=== PATIENT | male | born 1950 | race Caucasian/White ===

== ENCOUNTER 2018-06-06 03:38 | Emergency (ER) | payer BC, SELFPAY ==
[2018-06-06] VITALS (58 sets, daily range): BP systolic 87–120; BP diastolic 59–71; PULSE 63–87; RESP 8–23; TEMP 36.5; O2SAT 93–99
--- NOTE | 2018-06-06 03:45 | W.ED.GENAD ---
Discharge Plan Disposition Patient Disposition: HOME Condition: Good Discharge Details Chief Complaint: Chest Pain Clinical Impression: Chest pain Primary Care Provider: [facility] Provider: Fabian Madrigal Home Meds and New Rx's Prescriptions: No Action valacyclovir 500 mg Tablet 500 mg PO PRN PRNRF: 0 Discharge Instructions Instructions: Chest Pain (ED) Additional Instructions: Please follow-up immediately with your pre press manager at [place] for your stress test and further reevaluation. If you would like additional cardiology referral here, please contact us immediately upon her return we will set this up. If you notice any worsening of your symptoms, or any new symptoms such as vomiting, diarrhea, fever, chills, shortness of breath, chest pain, numbness, weakness, or fainting , please return immediately to the emergency department for reevaluation. Please follow up with your primary care provider as soon as possible for reassessment and reevaluation. As always, it was a pleasure participating in your medical care today. Medical Decision Making <Serg Brand MD - Last Filed: 06/06/18 07:43> 68-year-old healthy male awakened by substernal chest discomfort at approximately 3:30 AM. It abated on route. He was given aspirin by EMS. Vital signs are unremarkable, exam is reassuring. He does demonstrate very discrete tenderness in the epigastric region. Differential diagnosis includes gastritis, esophageal spasm, must exclude underlying ACS. Patient placed on a clinical research monitor, laboratories obtained patient referred for EKG and chest x-ray. Given GI cocktail. Initial laboratories unremarkable. Patient observed on clinical research monitor and repeat troponin will be obtained at [address] Please see Dr. Madrigal's note regarding final impression Lab Data Lab results reviewed: Yes I reviewed the patient's lab results. Laboratory Results - last 24 hr 06/06/18 06/06/18 03:57 03:57 WBC 7.49 RBC 5.08 Hgb 14.5 Hct 43.6 MCV 85.8 MCH 28.5 MCHC 33.3 RDW 14.3 H Plt Count 175 MPV 9.1 Immature Gran % 0.1 Neutrophils % 74.1 Lymphocytes % 12.4 Monocytes % 11.6 Eosinophils % 1.5 Basophils % 0.3 Absolute Neutrophils 5.55 Absolute Lymphocytes 0.93 L Absolute Monocytes 0.87 H Absolute Eosinophils 0.11 Absolute Basophils 0.02 Sodium 140 Potassium 3.9 Chloride 103 Carbon Dioxide 28.3 Anion Gap 8.7 BUN 16 Creatinine 0.93 Estimated GFR/1.73 m2 >= 60.00 Glucose 97 Calcium 8.4 L Magnesium 2.0 Total Bilirubin 0.5 AST 17 ALT 28 Alkaline Phosphatase 63 Troponin I 0.03 Total Protein 6.6 Albumin 3.5 Lipase 141 ECG Data Attestation: I personally reviewed and interpreted this ECG (s) as follows: Interpretation: Normal sinus rhythm with a rate of 72, the QRS is narrow, there are no acute ST segment changes <Fabian Madrigal, DO - Last Filed: 06/06/18 08:42> The patient was signed out to me by my colleague Dr. Serg Brand. Patient came in for a bandlike sensation around his lower chest, the burning sensation of his throat. It occurred at 1 PM. His symptoms resolved completely on their own but he did come to the ER for further evaluation and assessment. Initial cardiac workup and exam demonstrated very reassuring vital signs, normal labs, and her troponin within normal limits at 0.03. Chest x-ray was benign. Initial EKG was unremarkable. Repeat EKG shows no significant abnormality and no changes. Patient's serial troponin is 0.02, and well within normal limits. With his symptoms having occurred at 1 PM, if this was a cardiac etiology and suspect his troponin would be rising, his symptoms would be unresolved by time, and we would see EKG changes, and in the absence of all of this, I do not feel that his current clinical presentation is consistent with ACS. The patient is leaving for [place] tomorrow, and would like to schedule a stress test with his pre press manager there. We have given him the resources for scheduling a stress test here as well as cardiology follow-up he does prefer. I feel his symptoms may be secondary to the rib exercises he has been performing, or mild reflux from not eating for greater than 12 hours yesterday. I discussed red flags which to return, the importance of prompt follow-up, stress testing, further evaluation. I have extensively reviewed the treatment plan and discharge instructions with the patient. I have addressed all patient concerns at this time. The patient was made aware of what symptoms to monitor for that would warrant a return to the emergency department. Discussed the plan with the patient, they demonstrate verbal understanding and agreement with our assessment and plan at this time. EKG 7: 37 Rate 72, intervals normal, sinus rhythm, less than 1 mm of elevation in V2, and V3 V4 and V5, all consistent with repolarization variant, and inconsistent with tombs stoning or STEMI. Inverted T wave in lead III. No changes from prior EKG. HPI <Serg Brand MD - Last Filed: 06/06/18 07:43> General Mode of arrival: EMS. Date/Time Provider Initiated Documentation: 06/06/18 03:41. Limitations to Documentation: no limitations. Information obtained by: patient and EMS. History of Present Illness 68 year old M presents to the emergency department with the chief complaint of Epigastric/substernal chest discomfort, described as moderate, Quality is described as burning and dull, and is localized to the chest. Patient abdomen. Patient started experiencing this hour(s) and it has been now resolved. No relieving factors improve symptom(s), No exacerbating factors reported . Patient notes no other symptoms.. Patient did receive the following treatments prior to arrival, Aspirin Related Data Home Medications Medication Instructions Recorded Confirmed valacyclovir 500 mg PO PRN PRN 06/06/18 06/06/18 Allergies Allergy/AdvReac Type Severity Reaction Status Date / Time No Known Allergies Allergy Unverified 06/06/18 03:44 General Stated Complaint: Chest Pain ERIN: 2 Review of Systems <Serg Brand MD - Last Filed: 06/06/18 07:43> Review of Systems No prolonged travel, no lower extremity pain or swelling, denies shortness of breath or recent illness. 8 systems reviewed and otherwise negative PFSH <Serg rBand MD - Last Filed: 06/06/18 07:43> Social History Smoking/Tobacco Use Status: Never Alcohol Intake: current Alcohol Intake frequency: holidays/special occasions only Substance use type: does not use Do you feel safe at home: Yes Do you feel safe in your relationship?: Yes Exam <Serg Brand MD - Last Filed: 06/06/18 07:43> Narrative Exam Narrative: GEN: awake, alert, oriented 3. Pleasant, well groomed, interactive. HEAD: Normocephalic, atraumatic ENT: Mucous membranes moist, oropharynx unremarkable, External ear exam unremarkable EYES: PERRL, EOMI NECK: Full ROM, no NATALIYA, no menigismus CHEST/RESP: Nontender, clear to auscultation bilateral, no wheeze/rhonchi/rales CARDIOVASCULAR: RRR, no murmur, rub gerald. 2+ Rad pulse bilateral ABDOMEN: Soft, minimal epigastric tenderness, no mass. +Bowel sounds EXT: Full ROM, no edema, no rash Neuro: Grossly normal neurologic exam, conversant, interactive. Psych: Speech fluent, thoughts congruent, affect normal Course <Serg Brand MD - Last Filed: 06/06/18 07:43> Vital Signs Temperature 36.5 C 06/06/18 03:39 Pulse 69 06/06/18 03:39 Respiratory Rate 11 L 06/06/18 03:39 Blood Pressure 115/64 06/06/18 03:39 Pulse Oximetry 99 06/06/18 03:39 Temperature 36.5 C 06/06/18 03:39 Temperature Source Skin 06/06/18 03:39 Pulse 69 06/06/18 03:39 Respiratory Rate 11 L 06/06/18 03:39 Blood Pressure 115/64 06/06/18 03:39 Blood Pressure Position Sitting 06/06/18 03:39 Pulse Oximetry 99 06/06/18 03:39 Oxygen Delivery Method Room Air 06/06/18 03:39 Oxygen Flow Rate 0 06/06/18 03:39 Pain Level 1 06/06/18 03:39
--- NOTE | 2018-06-06 03:55 | ED.GENADUL_ITS ---
Discharge Plan Disposition Patient Disposition: HOME Condition: Good Discharge Details Chief Complaint: Chest Pain Clinical Impression: Chest pain Primary Care Provider: [facility] Provider: Fabian Madrigal Home Meds and New Rx's Prescriptions: No Action valacyclovir 500 mg Tablet 500 mg PO PRN PRNRF: 0 Discharge Instructions Instructions: Chest Pain (ED) Additional Instructions: Please follow-up immediately with your composing room supervisor at [place] for your stress test and further reevaluation. If you would like additional cardiology referral here, please contact us immediately upon her return we will set this up. If you notice any worsening of your symptoms, or any new symptoms such as vomiting, diarrhea, fever, chills, shortness of breath, chest pain, numbness, weakness, or fainting , please return immediately to the emergency department for reevaluation. Please follow up with your primary care provider as soon as possible for reassessment and reevaluation. As always, it was a pleasure participating in your medical care today. Medical Decision Making <Serg Brand MD - Last Filed: 06/06/18 07:43> 68-year-old healthy male awakened by substernal chest discomfort at approximately 3:30 AM. It abated on route. He was given aspirin by EMS. Vital signs are unremarkable, exam is reassuring. He does demonstrate very discrete tenderness in the epigastric region. Differential diagnosis includes gastritis, esophageal spasm, must exclude underlying ACS. Patient placed on a patient monitor, laboratories obtained patient referred for EKG and chest x-ray. Given GI cocktail. Initial laboratories unremarkable. Patient observed on patient monitor and repeat troponin will be obtained at [address] Please see Dr. Madrigal's note regarding final impression Lab Data Lab results reviewed: Yes I reviewed the patient's lab results. Laboratory Results - last 24 hr 06/06/18 06/06/18 03:57 03:57 WBC 7.49 RBC 5.08 Hgb 14.5 Hct 43.6 MCV 85.8 MCH 28.5 MCHC 33.3 RDW 14.3 H Plt Count 175 MPV 9.1 Immature Gran % 0.1 Neutrophils % 74.1 Lymphocytes % 12.4 Monocytes % 11.6 Eosinophils % 1.5 Basophils % 0.3 Absolute Neutrophils 5.55 Absolute Lymphocytes 0.93 L Absolute Monocytes 0.87 H Absolute Eosinophils 0.11 Absolute Basophils 0.02 Sodium 140 Potassium 3.9 Chloride 103 Carbon Dioxide 28.3 Anion Gap 8.7 BUN 16 Creatinine 0.93 Estimated GFR/1.73 m2 >= 60.00 Glucose 97 Calcium 8.4 L Magnesium 2.0 Total Bilirubin 0.5 AST 17 ALT 28 Alkaline Phosphatase 63 Troponin I 0.03 Total Protein 6.6 Albumin 3.5 Lipase 141 ECG Data Attestation: I personally reviewed and interpreted this ECG (s) as follows: Interpretation: Normal sinus rhythm with a rate of 72, the QRS is narrow, there are no acute ST segment changes <Fabian Madrigal, DO - Last Filed: 06/06/18 08:42> The patient was signed out to me by my colleague Dr. Serg Brand. Patient came in for a bandlike sensation around his lower chest, the burning sensation of his throat. It occurred at 1 PM. His symptoms resolved completely on their own but he did come to the ER for further evaluation and assessment. Initial cardiac workup and exam demonstrated very reassuring vital signs, normal labs, and her troponin within normal limits at 0.03. Chest x-ray was benign. Initial EKG was unremarkable. Repeat EKG shows no significant abnormality and no changes. Patient's serial troponin is 0.02, and well within normal limits. With his symptoms having occurred at 1 PM, if this was a cardiac etiology and suspect his troponin would be rising, his symptoms would be unresolved by time, and we would see EKG changes, and in the absence of all of this, I do not feel that his current clinical presentation is consistent with ACS. The patient is leaving for [place] tomorrow, and would like to schedule a stress test with his composing room supervisor there. We have given him the resources for scheduling a stress test here as well as cardiology follow-up he does prefer. I feel his symptoms may be secondary to the rib exercises he has been performing, or mild reflux from not eating for greater than 12 hours yesterday. I discussed red flags which to return, the importance of prompt follow-up, stress testing, further evaluation. I have extensively reviewed the treatment plan and discharge instructions with the patient. I have addressed all patient concerns at this time. The patient was made aware of what symptoms to monitor for that would warrant a return to the emergency department. Discussed the plan with the patient, they demonstrate verbal understanding and agreement with our assessment and plan at this time. EKG 7: 37 Rate 72, intervals normal, sinus rhythm, less than 1 mm of elevation in V2, and V3 V4 and V5, all consistent with repolarization variant, and inconsistent with tombs stoning or STEMI. Inverted T wave in lead III. No changes from prior EKG. HPI <Serg Brand MD - Last Filed: 06/06/18 07:43> General Mode of arrival: EMS . Date/Time Provider Initiated Documentation: 06/06/18 03:41 . Limitations to Documentation: no limitations . Information obtained by: patient and EMS . History of Present Illness 68 year old M presents to the emergency department with the chief complaint of Epigastric/substernal chest discomfort, described as moderate, Quality is described as burning and dull, and is localized to the chest. Patient abdomen. Patient started experiencing this hour(s) and it has been now resolved. No relieving factors improve symptom(s), No exacerbating factors reported . Patient notes no other symptoms.. Patient did receive the following treatments prior to arrival, Aspirin Related Data Home Medications Medication Instructions Recorded Confirmed valacyclovir 500 mg PO PRN PRN 06/06/18 06/06/18 Allergies Allergy/AdvReac Type Severity Reaction Status Date / Time No Known Allergies Allergy Unverified 06/06/18 03:44 General Stated Complaint: Chest Pain ERIN: 2 Review of Systems <Serg Brand MD - Last Filed: 06/06/18 07:43> Review of Systems No prolonged travel, no lower extremity pain or swelling, denies shortness of breath or recent illness. 8 systems reviewed and otherwise negative PFSH <Serg Brand MD - Last Filed: 06/06/18 07:43> Social History Smoking/Tobacco Use Status: Never Alcohol Intake: current Alcohol Intake frequency: holidays/special occasions only Substance use type: does not use Do you feel safe at home: Yes Do you feel safe in your relationship?: Yes Exam <Serg Brand MD - Last Filed: 06/06/18 07:43> Narrative Exam Narrative: GEN: awake, alert, oriented 3. Pleasant, well groomed, interactive. HEAD: Normocephalic, atraumatic ENT: Mucous membranes moist, oropharynx unremarkable, External ear exam unremarkable EYES: PERRL, EOMI NECK: Full ROM, no NATALIYA, no menigismus CHEST/RESP: Nontender, clear to auscultation bilateral, no wheeze/rhonchi/rales CARDIOVASCULAR: RRR, no murmur, rub gerald. 2+ Rad pulse bilateral ABDOMEN: Soft, minimal epigastric tenderness, no mass. +Bowel sounds EXT: Full ROM, no edema, no rash Neuro: Grossly normal neurologic exam, conversant, interactive. Psych: Speech fluent, thoughts congruent, affect normal Course <Serg Brand MD - Last Filed: 06/06/18 07:43> Vital Signs Temperature 36.5 C 06/06/18 03:39 Pulse 69 06/06/18 03:39 Respiratory Rate 11 L 06/06/18 03:39 Blood Pressure 115/64 06/06/18 03:39 Pulse Oximetry 99 06/06/18 03:39 Temperature 36.5 C 06/06/18 03:39 Temperature Source Skin 06/06/18 03:39 Pulse 69 06/06/18 03:39 Respiratory Rate 11 L 06/06/18 03:39 Blood Pressure 115/64 06/06/18 03:39 Blood Pressure Position Sitting 06/06/18 03:39 Pulse Oximetry 99 06/06/18 03:39 Oxygen Delivery Method Room Air 06/06/18 03:39 Oxygen Flow Rate 0 06/06/18 03:39 Pain Level 1 06/06/18 03:39
[2018-06-06 04:04] LABS: Abs Immature Grans 0.01 k/cumm (0.0-0.09); Absolute Basophil Count 0.02 k/cumm (0.0-0.2); Absolute Eosinophil Count 0.11 k/cumm (0.0-0.7); Absolute Lymphocyte Count 0.93 k/cumm (1.2-3.4); Absolute Monocyte Count 0.87 k/cumm (0.11-0.7); Absolute Neutrophil Count 5.55 k/cumm (1.2-6.7); Basophils % 0.3; Eosinophils % 1.5; HCT 43.6 % (40.0-50.0); HGB 14.5 g/dL (13.5-17.5); Immature Grans % 0.1; Lymphocytes % 12.4; Mean Corp. HGB Concentration 33.3 g/dL (32.0-36.0); Mean Corpuscular Hemoglobin 28.5 pg (27.0-33.0); Mean Corpuscular Volume 85.8 fL (80-95); Mean Platelet Volume 9.1 fL (8.0-11.0); Monocytes % 11.6; Neutrophils % 74.1; Platelet Count 175 x1000/uL (130-400); RBC 5.08 m/cumm (4.50-6.00); RBC Distribution Width 14.3 % (11.8-14.1); White Blood Cell Count 7.49 k/cumm (4.4-10.8)
--- NOTE | 2018-06-06 04:15 | DI.RAD_ITS ---
SYMPTOM/DIAGNOSIS: EPIGASTRIC PAIN PA AND LATERAL CHEST: The heart is normal in size. The lungs are clear. The mediastinal structures and pleura appear intact. CONCLUSION: Normal chest. No evidence of acute cardiopulmonary disease.
[2018-06-06 04:21] LABS: ALT 28 U/L (12-78); AST 17 U/L (15-37); Albumin 3.5 g/dL (3.4-5.0); Alkaline Phosphatase 63 U/L (46-116); Anion Gap 8.7 mmol/L (3-11); BUN 16 mg/dL (7-18); Bilirubin, Total 0.5 mg/dL (0.2-1.0); CO2 28.3 mmol/L (21.0-32.0); CREATININE 0.93 mg/dL (0.70-1.30); Calcium 8.4 mg/dL (8.5-10.1); Chloride 103 mmol/L (98-107); Glucose 97 mg/dL (70-100); Lipase 141 U/L (73-393); Potassium 3.9 mmol/L (3.5-5.1); Sodium 140 mmol/L (136-145); Total Protein 6.6 g/dL (6.4-8.2); Troponin I 0.03 ng/mL (0.00-0.06)
--- NOTE | 2018-06-06 05:52 | DI.VRAD_ITS ---
EXAM: XR Chest, 2 Views EXAM DATE/TIME: 06/06/2018 3:57 AM CLINICAL HISTORY: 68 years old, male; Pain; Chest pain; Left-sided chest pain; Patient HX: Left sided chest pain TECHNIQUE: Imaging protocol: XR of the chest, 2 views. COMPARISON: No relevant prior studies available. FINDINGS: Lungs: Unremarkable. No consolidation. Pleural space: Unremarkable. No pleural effusion. No pneumothorax. Heart/Mediastinum: Unremarkable. No cardiomegaly. Bones/joints: Unremarkable. IMPRESSION: No acute findings. Dictated and Authenticated by: Rodolfo Winters MD. Ordering:STANLEY Ulrich MD
[2018-06-06 08:17] LABS: Troponin I 0.02 ng/mL (0.00-0.06)
== END 2018-06-06 08:50 | disposition home or self-care (01) ==
PROVIDERS: Emergency Medicine; Emergency Provider Student in an Organized Health Care Education/Training Program
DX: R07.9 Chest pain, unspecified (principal)
CPT/HCPCS: 36415; 80053; 83690; 93005; 99285; 71046; 83735; 84484; 85025; 93010

== ENCOUNTER 2019-03-27 11:34 | Emergency (ER) | payer BC, SELFPAY ==
[2019-03-27] VITALS (8 sets, daily range): BP systolic 114–138; BP diastolic 68–81; PULSE 77–100; RESP 12–25; TEMP 37.1–37.2; O2SAT 94–99
--- NOTE | 2019-03-27 11:55 | ED.GENADUL_ITS ---
Discharge Plan Disposition Patient Disposition: HOME Condition: Stable Discharge Details Chief Complaint: SOB Clinical Impression: Influenza A Primary Care Provider: Leila Pak ED Provider: Serg Brand Home Meds and New Rx's Prescriptions: New guaifenesin [Mucinex] 600 mg tablet extended release 12hr 600 mg PO Q12H PRNQty: 10 RF: 0 benzonatate [Tessalon Perles] 100 mg capsule 100 mg PO TID PRN (Reason: cough) Qty: 14 RF: 0 Continued valacyclovir 500 mg Tablet 500 mg PO PRN PRNRF: 0 Discharge Instructions Instructions: Influenza (ED) Additional Instructions: May use the provided albuterol inhaler 2 puffs every 4 hours if needed for cough. Mucinex to clear up some of your congestion. May use Tessalon as needed to help suppress cough. Small, frequent sips of fluids and/or popsicles to maintain hydration. We will ask our care management to arrange an outpatient follow-up for you in primary care. Return to the ER if you have persistent high fever, worsening breathing, vomiting, or any other acute concerns. Medical Decision Making Otherwise healthy 69-year-old male who lives in the town of [place]. 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 He was recently traveling abroad and noticed that he became sick after contact with people in the airport and his grandchildren. Presents with 4 to 5 days of cough, production of sputum, general malaise and body ache. His temp is 37, pulse 94, blood pressure 134/81 with 96% sat on room air. Lung tariq with coarse rhonchi. Differential diagnosis include viral syndrome/influenza, bronchitis, pneumonia. He does not have chest pain and I am not suspicious for PE. IV placed, patient given fluids, parenteral ketorolac, DuoNeb, referred for chest x-ray and laboratory testing. The patient is positive for influenza A. Remainder of his laboratories CXR: The heart is not enlarged. The lungs are clear and well expanded. No pleural effusion seen. Mediastinal contours appear intact. Normal CXR per Dr Mar. Patient improving with above interventions. I will offer him an albuterol inhaler for use to attenuate the cough during times of illness. We will increase his symptomatic management through antitussives and Mucinex. He is stable for discharge to home. We will ask care management to arrange an outpatient follow-up for him for recheck and to establish primary care in this area. ECG Data Attestation: I personally reviewed and interpreted this ECG (s) as follows: Prior ECG tracings: available for review Interpretation: Normal sinus rhythm with a rate of 87, the QRS is narrow, there is no ST segment elevation. No significant change versus comparison of June 06, 2018 [facility] General Mode of arrival: ambulatory . Date/Time Provider Initiated Documentation: 03/27/19 11:37 . Limitations to Documentation: no limitations . Information obtained by: patient . History of Present Illness 69 year old M presents to the emergency department with the chief complaint of Cough, congestion, fever and chills, production of sputum, described as moderate, Quality is described as constant, and is localized to the chest. Patient reports no radiation. Patient started experiencing this day(s) and it has been constant. No relieving factors improve symptom(s), No exacerbating factors reported . Patient notes cough, fever/chills, loss of appetite and malaise; denies shortness of breath and syncope. Patient did receive the following treatments prior to arrival, none Related Data Home Medications Medication Instructions Recorded Confirmed valacyclovir 500 mg PO PRN PRN 06/06/18 03/27/19 benzonatate [Tessalon Perles] 100 mg PO TID PRN #14 cap 03/27/19 guaifenesin [Mucinex] 600 mg PO Q12H PRN #10 tab 03/27/19 Previous Rx's Medication Instructions Recorded benzonatate [Tessalon Perles] 100 mg PO TID PRN #14 cap 03/27/19 guaifenesin [Mucinex] 600 mg PO Q12H PRN #10 tab 03/27/19 Allergies Allergy/AdvReac Type Severity Reaction Status Date / Time No Known Allergies Allergy Unverified 03/27/19 11:44 General Stated Complaint: SOB ERIN: 2 Review of Systems Narrative: Travel to [place]. No difficulty breathing. Positive sick contacts with grandchildren. 8 systems reviewed and otherwise negative [facility] Social History Smoking/Tobacco Use Status: Never Alcohol Intake: current Alcohol Intake frequency: holidays/special occasions only Substance use type: does not use Do you feel safe at home: Yes Do you feel safe in your relationship?: Yes Exam Narrative Exam Narrative: GEN: awake, alert, oriented 3. Pleasant, well groomed, interactive. HEAD: Normocephalic, atraumatic ENT: Mucous membranes dry, oropharynx unremarkable, External ear exam unremarkable EYES: PERRL, EOMI NECK: Full ROM, no NATALIYA, no menigismus CHEST/RESP: Cough with bibasilar left greater than right and rhonchi present CARDIOVASCULAR: RRR, no murmur, rub gerald. 2+ Rad pulse bilateral ABDOMEN: Soft, nontender, no mass. +Bowel sounds EXT: Full ROM, no edema, no rash Neuro: Grossly normal neurologic exam, conversant, interactive. Psych: Speech fluent, thoughts congruent, affect normal Course Vital Signs Vital signs: Vital Signs Temperature 37.2 C 03/27/19 11:38 Pulse 94 H 03/27/19 11:38 Respiratory Rate 18 03/27/19 11:38 Blood Pressure 134/81 03/27/19 11:38 Pulse Oximetry 95 03/27/19 11:38 Temperature 37.2 C 03/27/19 11:38 Temperature Source Oral 03/27/19 11:38 Pulse 94 H 03/27/19 11:38 Respiratory Rate 18 03/27/19 11:38 Respiratory Effort 03/27/19 11:42 Blood Pressure 134/81 03/27/19 11:38 Blood Pressure Position Sitting 03/27/19 11:38 Pulse Oximetry 95 03/27/19 11:38 Oxygen Delivery Method Room Air 03/27/19 11:38 Oxygen Flow Rate 0 03/27/19 11:38 Pain Level 8 03/27/19 11:38
[2019-03-27] MEDS: Normal Saline 1,000 ML 1000 ML IV (12:12)
[2019-03-27] MEDS: Normal Saline Flush 10 ML SYR IVP (12:12)
[2019-03-27 12:14] LABS: Abs Immature Grans 0.01 k/cumm (0.0-0.09); Absolute Basophil Count 0.01 k/cumm (0.0-0.2); Absolute Eosinophil Count 0.02 k/cumm (0.0-0.7); Absolute Lymphocyte Count 1.26 k/cumm (1.2-3.4); Absolute Monocyte Count 0.98 k/cumm (0.11-0.7); Absolute Neutrophil Count 3.66 k/cumm (1.2-6.7); Basophils % 0.2; Eosinophils % 0.3; HCT 44.6 % (40.0-50.0); HGB 14.9 g/dL (13.5-17.5); Immature Grans % 0.2 %; Lymphocytes % 21.2; Mean Corp. HGB Concentration 33.4 g/dL (32.0-36.0); Mean Corpuscular Hemoglobin 28.1 pg (27.0-33.0); Mean Corpuscular Volume 84.2 fL (80-95); Mean Platelet Volume 9.5 fL (8.0-11.0); Monocytes % 16.5; Neutrophils % 61.6; Platelet Count 150 x1000/uL (130-400); RBC Distribution Width 13.7 % (11.8-14.1); White Blood Cell Count 5.94 k/cumm (4.4-10.8)
[2019-03-27] MEDS: Ketorolac 15 MG/ML VIAL IVP (12:23)
--- NOTE | 2019-03-27 12:23 | DI.RAD_ITS ---
EXAM: XR CHEST 2V PA LATERAL XR CHEST 2V PA LATERAL CLINICAL HISTORY: cugh, rhonchi cugh, rhonchi TECHNIQUE: 2D digital imaging was performed. COMPARISON: XR CHEST 2V PA LATERAL from 06/06/2018 FINDINGS: The heart is not enlarged. The lungs are clear and well expanded. No pleural effusion seen. Mediastin al contours appear intact. IMPRESSION: Normal chest
[2019-03-27 12:39] LABS: ALT 27 U/L (16-63); AST 21 U/L (15-37); Albumin 3.4 g/dL (3.4-5.0); Alkaline Phosphatase 46 U/L (46-116); Anion Gap 8.1 mmol/L (3-11); BUN 14 mg/dL (7-18); Bilirubin, Total 0.5 mg/dL (0.2-1.0); CO2 28.9 mmol/L (21.0-32.0); Calcium 8.5 mg/dL (8.5-10.1); Chloride 99 mmol/L (98-107); Glucose 107 mg/dL (74-106); Magnesium 1.9 mg/dL (1.8-2.4); Potassium 4.4 mmol/L (3.5-5.1); Sodium 136 mmol/L (136-145); Total Protein 6.8 g/dL (6.4-8.2)
[2019-03-27 12:41] LABS: Troponin I < 0.05 ng/Ml (<0.06)
[2019-03-27] MEDS: Inhaler, Assist Device 1 EACH MC (13:09)
[2019-03-27] MEDS: Albuterol HFA 8 GM 60 PUFF INH IH (13:10)
== END 2019-03-27 13:22 | disposition home or self-care (01) ==
PROVIDERS: Emergency Provider Emergency Medicine; PCP Student in an Organized Health Care Education/Training Program
DX: J10.1 Influenza due to other identified influenza virus with other respiratory manifestations (principal)
CPT/HCPCS: 36415; 80053; 87449; 93005; 96361; 96374; 99285; 71046; 83735; 84484; 85025; 93010; 99284; J1885

== ENCOUNTER 2019-05-10 11:24 | Outpatient (REF) | payer BC, SELFPAY ==
[2019-05-10 12:18] LABS: Absolute Basophil Count 0.05 k/cumm (0.0-0.2); Absolute Lymphocyte Count 3.45 k/cumm (1.2-3.4); Absolute Monocyte Count 0.84 k/cumm (0.11-0.7); Absolute Neutrophil Count 2.94 k/cumm (1.2-6.7); Basophils % 0.7; Eosinophils % 1.4; HCT 46.6 % (40.0-50.0); HGB 15.5 g/dL (13.5-17.5); Lymphocytes % 46.7; Mean Corp. HGB Concentration 33.3 g/dL (32.0-36.0); Mean Corpuscular Hemoglobin 28.3 pg (27.0-33.0); Mean Corpuscular Volume 85.2 fL (80-95); Mean Platelet Volume 9.1 fL (8.0-11.0); Monocytes % 11.4; Neutrophils % 39.8; Platelet Count 274 x1000/uL (130-400); RBC 5.47 m/cumm (4.50-6.00); RBC Distribution Width 14.3 % (11.8-14.1); White Blood Cell Count 7.38 k/cumm (4.4-10.8)
== END 2019-05-10 11:44 ==
LOC: LBN 11:24
PROVIDERS: PCP Nurse Practitioner Adult Health; Visit Provider Nurse Practitioner Adult Health
DX: R05 Cough (principal)
CPT/HCPCS: 85025

== ENCOUNTER 2019-09-18 07:14 | Outpatient (CLI) | payer BC, SELFPAY ==
--- NOTE | 2019-09-18 10:00 | DI.MRI_ITS ---
EXAM: MR LOWER JOINT LT WO CLINICAL HISTORY: PAIN LT HIP JOINT, M25.552, ASSESS FOR LABRAL TEAR, OA, AVN, LOOSE BODIES. TECHNIQUE: Multiplanar multisequence MRI was performed. COMPARISON: No exams were available for comparison FINDINGS: MR examination of the left hip was performed according to the usual protocol. Pelvic soft tissues: Internal pelvic contents are unremarkable except for prostatic enlargement. No adenopathy seen. Bones: Unremarkable appearance of the SI joints. There is prominent subchondral cyst formation of the right femoral head with the largest cyst measuri ng about 12 millimeters in diameter. On the left the femoral head appears well maintained except for a 6 millimeter lateral cyst at the ju nction of the femoral neck and head. There is cyst formation of the acetabulum with the most promine nt subchondral cysts involving the posterosuperior aspect of the acetabulum measuring up to about 24 x 13 millimeters in diameter. There is no evidence of avascular necrosis. There are mild marginal o steophytes of the acetabulum. Labrum and cartilage: Labrum appears grossly intact as visualized. Articular cartilage of both hips may be mildly thinned. No hip joint effusion seen on either side. Musculotendinous structures: No significant signal abnormality identified in the tendons are musculat ure of the hip regions. IMPRESSION: [id number] degenerative changes of both hips with prominent subchondral cysts involving right f emoral head and left acetabulum. No evidence of avascular necrosis. No loose bodies identified. DATA REPOSITORY:
== END 2019-09-18 07:34 ==
PROVIDERS: PCP Nurse Practitioner Adult Health; Visit Provider Orthopaedic Surgery Sports Medicine
DX: M25.552 Pain in left hip (principal); M16.0 Bilateral primary osteoarthritis of hip; M85.68 Other cyst of bone, other site
CPT/HCPCS: 73721

== ENCOUNTER 2019-10-23 07:22 | Outpatient (CLI) | payer BC, SELFPAY ==
[2019-10-24 14:47] LABS: COVID-19 RT-PCR Result NEGATIVE (Negative)
== END 2019-10-23 07:42 ==
PROVIDERS: PCP Nurse Practitioner Adult Health; Visit Provider Family Medicine
DX: Z11.59 Encounter for screening for other viral diseases (principal); Z01.818 Encounter for other preprocedural examination
CPT/HCPCS: U0003

== ENCOUNTER 2019-10-23 08:04 | Outpatient (CLI) | payer BC, SELFPAY ==
[2019-10-24 09:01] LABS: PSA, Screening 1.1 ng/mL (0.0-6.5)
[2019-10-25 14:24] LABS: Testosterone, Free 10.8 ng/dL (3.28-12.2); Testosterone, Total 980 ng/dL (240-950)
== END 2019-10-23 08:24 ==
PROVIDERS: Urology; PCP Nurse Practitioner Adult Health; Visit Provider Nurse Practitioner Gerontology
DX: R68.82 Decreased libido (principal); N40.0 Benign prostatic hyperplasia without lower urinary tract symptoms; Z12.5 Encounter for screening for malignant neoplasm of prostate
CPT/HCPCS: 84153; 84402; 84403

== ENCOUNTER 2019-10-26 00:43 | Outpatient (CLI) | payer BC, SELFPAY ==
[2019-10-26] MEDS: Albuterol HFA 18 GM 200 PUFF INH IH (14:24)
[2019-10-26] MEDS: Inhaler, Assist Device 1 EACH MC (14:24)
--- NOTE | 2019-10-31 10:41 | W.PFT ---
Date of service: 10/26/19 Time of Service: 01:05 Pulmonary Function Test Result Interpretation Spirometry: Borderline mild obstructive airways disease, may be a normal variant, no bronchodilator response Lung Volumes: No evidence of restriction Diffusion Capacity: Normal Airway Pressure: Normal Impression Perhaps borderline mild obstructive airways disease, however more likely representing a normal variant, no bronchodilator response Clinical Correlation therefore is recommended.
== END 2019-10-26 01:03 ==
PROVIDERS: PCP Nurse Practitioner Adult Health; Visit Provider Nurse Practitioner Adult Health
DX: R05 Cough (principal); R06.02 Shortness of breath; R09.82 Postnasal drip
CPT/HCPCS: 94060; 94726; 94729

== ENCOUNTER 2020-07-11 04:40 | Outpatient (CLI) | payer BC, SELFPAY ==
--- NOTE | 2020-07-11 | DI.RAD_ITS ---
Exam(s) XR HIP LT COMPLETE AP PELVIS EXAM: XR HIP LT COMPLETE AP PELVIS CLINICAL HISTORY: LT HIP PAIN, M25.552. TECHNIQUE: 2D digital imaging was performed. COMPARISON: No exams were available for comparison FINDINGS: There are mild degenerative changes of the hips bilaterally with joint space narrowing and mild subch ondral sclerosis. No acute fracture or dislocation. No suspicious lytic or sclerotic lesions. The soft tissues are unremarkable. The visualized sacroiliac joints are unremarkable. IMPRESSION: Mild degenerative changes of the left hip. DATA REPOSITORY: RADIATION DOSE DELIVERED:
== END 2020-07-11 05:00 ==
PROVIDERS: PCP Nurse Practitioner Adult Health; Visit Provider Orthopaedic Surgery Sports Medicine
DX: M25.552 Pain in left hip (principal); M16.12 Unilateral primary osteoarthritis, left hip
CPT/HCPCS: 73502

== ENCOUNTER → 2020-08-07 08:24 | Outpatient (BNVA) | payer BC, MEDICARE, SELFPAY | PROVIDERS: PCP Nurse Practitioner Adult Health; Referring Provider Nurse Practitioner Adult Health; Visit Provider Nurse Practitioner Gerontology | DX: R69 Illness, unspecified (principal) | CPT/HCPCS: 99213 ==

== ENCOUNTER 2020-11-11 18:14 | Emergency (ER) | payer MEDICARE, BC, SELFPAY ==
[2020-11-11] VITALS (30 sets, daily range): BP systolic 108–142; BP diastolic 62–81; PULSE 51–69; RESP 8–25; TEMP 36.3; O2SAT 94–100
--- NOTE | 2020-11-11 18:15 | RT.EKG_ITS ---
APPROVED REPORT Exam: Resting ECG Reason for Exam: chest pain Patient Location: E HR:59 bpm ECG Measurements Heart Rate 59 AXIS DC 193 P 77 QRSd 80 QRS 73 QT 404 T 47 QTc 400 Conclusion Sinus bradycardia. Rate 60. Suble J Point elevation present 06/06/18
--- NOTE | 2020-11-11 18:15 | DI.RAD_ITS ---
Exam(s) XR CHEST 2V PA LATERAL EXAM: XR CHEST 2V PA LATERAL CLINICAL HISTORY: chest pain. TECHNIQUE: 2D digital imaging was performed. COMPARISON: CR XR CHEST 2V PA LATERAL from 03/27/2019 FINDINGS: Heart size is normal. The mediastinum is not widened. Lungs are clear. No infiltrates nor pleural effusions. IMPRESSION: No acute pulmonary findings. DATA REPOSITORY: RADIATION DOSE DELIVERED:
[2020-11-11] MEDS: Aspirin 81 MG CHEW 324 MG CH (18:36)
--- NOTE | 2020-11-11 18:45 | DI.CT_ITS ---
Exam(s) CT BRAIN NECK CTA EXAM: CT BRAIN NECK CTA CLINICAL HISTORY: kerr, neck pain. TECHNIQUE: Imaging Protocol: Axial CT angiography was performed with multi-slice acquisition and mu lti-planar and/or 3D reconstructions. CONTRAST MATERIAL: Intravenous: Omnipaque 350 Contrast volume:100 mL COMPARISON: No exams were available for comparison FINDINGS: CTA Neck W: Aortic arch anatomy: The aortic arch anatomy is conventional. Anterior circulation: Both common carotid arteries are patent and there is no significant atherosclerotic involvement of th e carotid bulbs and proximal internal carotid arteries. Both internal carotid arteries are nicely pa tent in the upper neck and skull base. Posterior circulation: Both vertebral arteries originated conventional fashion off of the subclavian arteries. No stenosis at their origins. Both vertebral arteries ascend with normal equal luminal diameters. At the skull base both vertebral arteries contribute to the formation of the basilar artery. CTA Brain W: Anterior circulation: Both internal carotid artery are patent in the skull base-carotid canals as well as within the cavern ous sinuses. Supraclinoid aspects are patent. Both middle cerebral arteries are patent. Both A1 se gments are patent. Both anterior cerebral arteries are patent. No evidence of aneurysm at the level of the anterior communicating artery. Posterior circulation: Basilar artery is formed at the skull base by both vertebral arteries and ascends with normal luminal diameter. Distally the basilar artery gives off patent bilateral superior cerebellar arteries and t erminates as patent bilateral posterior cerebral arteries. No evidence of aneurysm of the tip of the basilar artery nor elsewhere in the [id number]. There is no evidence of obvious venous sinus thrombosis. CT BRAIN: There is no evidence of intracranial hemorrhage, mass effect, or shift of midline structures. There are no extra-axial fluid collections. Ventricles are not enlarged or shifted and there is no blood w ithin the ventricular system nor within the basal cisterns. There are no ring enhancing lesions in t he brain and no abnormal meningeal enhancement. IMPRESSION: 1. No significant atherosclerotic narrowing of the carotid and vertebral arteries in the neck. 2. Patent intracranial arteries as described above. No aneurysms evident. 3. No acute intracranial findings. If clinically indicated follow-up MRI/MRA can be performed. This study 1st read by [facility]. RADIATION DOSE DELIVERED: 2,221.61mGy.cm Total DLP DATA REPOSITORY: All CT scans at this facility are submitted to the National Radiology Data Registry (NRDR) Dose Index Registry (DIR) with the [employer] (ACR). RADIATION OPTIMIZATION: All CT scans at this facility use at least one of these dose optimization te chniques: automated exposure control; mA and/or kV adjustment per patient size (includes targeted exa ms where dose is matched to clinical indication); or iterative reconstruction.
[2020-11-11 18:48] LABS: Absolute Basophil Count 0.04 10^3/uL (0.0-0.2); Absolute Eosinophil Count 0.14 10^3/uL (0.0-0.7); Absolute Lymphocyte Count 2.47 10^3/uL (1.2-3.4); Absolute Monocyte Count 0.63 10^3/uL (0.1-0.8); Basophils % 0.7; Eosinophils % 2.3; HCT 46.7 % (40.0-50.0); HGB 15.2 g/dL (13.5-17.5); Lymphocytes % 41.3; MCH 27.7 pg (27.0-33.0); MCHC 32.5 % (32.0-36.0); MCV 85.1 fL (80-95); MPV 9.1 fL (8.0-11.0); Monocytes % 10.5; Neutrophils % 45.2; Nucleated RBC 0 %; Platelet Count 216 10^3/uL (130-400); RBC 5.49 10^6/uL (4.36-5.78); RDW 13.6 % (11.8-14.1); RDW-SD 42.2 fL; WBC 5.98 10^3/uL (4.4-10.8)
[2020-11-11 19:01] LABS: Magnesium 2.6 mg/dL (1.8-2.4)
--- NOTE | 2020-11-11 19:01 | ED.GENADUL_ITS ---
Discharge Plan Disposition Patient Disposition: HOME Condition: Stable Discharge Details Clinical Impression: Chest pain Primary Care Provider: Kristin Wolf ED Provider: [place] Home Meds and New Rx's Prescriptions: Continued valacyclovir 1 gram tablet 2,000 mg PO BID PRNRF: 0 ketoconazole 2 % shampoo 1 applic topical .2x/week RF: 0 ketoconazole 2 % cream 1 applic topical BID PRNRF: 0 valacyclovir 500 mg Tablet 500 mg PO PRN PRNRF: 0 Discharge Instructions Instructions: Chest Pain (ED) Additional Instructions: Rapid cardiac rule out including CTA of the neck and head are unremarkable for obvious emergent process. You are now asymptomatic. Admission has been offered but declined. Please watch for new or worsening symptoms and return to the ER for any concerns. I recommend that you contact your primary care provider tomorrow to discuss your ER visit, need for outpatient reevaluation that very well may include stress test and echocardiogram. Discharge Data Discharge Date/Time-TO BE ENTERED AT DEPARTURE: 11/11/20 23:34 Medical Decision Making This is a 70-year-old male, really no significant past medical history, no cardiac history, presents for what he describes as diffuse chest pressure- aching, felt as though he has swollen glands in his neck, a dull headache, concern for dehydration that began upon waking at 5 a.m. this morning and resolved around 5 PM this afternoon after drinking ample water. Clinically he appears well, nontoxic. He appears hemodynamically stable. Given his multiple complaints, chest pain, neck pain, headache, I will initiate a cardiac work-up but I would also like to obtain a CTA of the neck and brain as well as a CT without contrast of the brain. I will also provide a full dose aspirin. Initial laboratories reveal a unremarkable CBC, CMP except for a magnesium slightly elevated at 2.6. Patient has a D-dimer of 613, this is negative when age-adjusted. He denies any tearing or ripping sensation in his chest, abdomen, back. Denies any shortness of breath. Initial troponin is less than 0.05. Urinalysis is unremarkable. Both chest x-ray and CTA of the neck and brain are unremarkable. We discussed his initial work-up here in the ER. Depending on how you would review his story, his heart score is either a 2 or 3, either way low risk category. He remains asymptomatic. We discussed an observation admission however patient reports that he is asymptomatic and would prefer to be discharged home if at all possible. Given his heart score is in the low risk category, I do believe obtaining a delta troponin and discharge home with strict discharge and return precautions as well as prompt outpatient follow-up is reasonable. Patient would prefer to go this route. He remains hemodynamically stable under my care. Repeat troponin remains less than 0.05. He remains asymptomatic. We discussed his repeat unremarkable troponin. Patient has no additional questions or concerns and is comfortable discharge at this time. We once again discussed strict discharge and return precautions. We also discussed the importance of contacting his primary care provider tomorrow to discuss his presentation today and likely need for outpatient further cardiac work-up including stress test and echocardiogram. Medical Records Medical records reviewed: Yes I reviewed the patient's medical records. Imaging Data Radiologic Study: Attestation: I personally reviewed and interpreted this imaging study as follows: Imaging: X-Ray Radiologist's impression: Exam(s) XR CHEST 2V PA LATERAL EXAM: XR CHEST 2V PA LATERAL CLINICAL HISTORY: chest pain. TECHNIQUE: 2D digital imaging was performed. COMPARISON: CR XR CHEST 2V PA LATERAL from 03/27/2019 FINDINGS: Heart size is normal. The mediastinum is not widened. Lungs are clear. No infiltrates nor pleural effusions. Radiologic Study #2: Attestation: I personally reviewed and interpreted this imaging study as follows: Imaging: CT Scan Radiologist's impression: Exam(s) CT BRAIN NECK CTA EXAM: CT BRAIN NECK CTA CLINICAL HISTORY: kerr, neck pain. TECHNIQUE: Imaging Protocol: Axial CT angiography was performed with multi- slice acquisition and multi-planar and/or 3D reconstructions. CONTRAST MATERIAL: Intravenous: Omnipaque 350 Contrast volume:100 mL COMPARISON: No exams were available for comparison FINDINGS: CTA Neck W: Aortic arch anatomy: The aortic arch anatomy is conventional. Anterior circulation: Both common carotid arteries are patent and there is no significant atherosclerotic involvement of the carotid bulbs and proximal internal carotid arteries. Both internal carotid arteries are nicely patent in the upper neck and skull base. Posterior circulation: Both vertebral arteries originated conventional fashion off of the subclavian arteries. No stenosis at their origins. Both vertebral arteries ascend with normal equal luminal diameters. At the skull base both vertebral arteries contribute to the formation of the basilar artery. CTA Brain W: Anterior circulation: Both internal carotid artery are patent in the skull base-carotid canals as well as within the cavernous sinuses. Supraclinoid aspects are patent. Both middle cerebral arteries are patent. Both A1 segments are patent. Both anterior cerebral arteries are patent. No evidence of aneurysm at the level of the anterior communicating artery. Posterior circulation: Basilar artery is formed at the skull base by both vertebral arteries and ascends with normal luminal diameter. Distally the basilar artery gives off patent bilateral superior cerebellar arteries and terminates as patent bilateral posterior cerebral arteries. No evidence of aneurysm of the tip of the basilar artery nor elsewhere in the [id number]. There is no evidence of obvious venous sinus thrombosis. CT BRAIN: There is no evidence of intracranial hemorrhage, mass effect, or shift of midline structures. There are no extra-axial fluid collections. Ventricles are not enlarged or shifted and there is no blood within the ventricular system nor within the basal cisterns. There are no ring enhancing lesions in the brain and no abnormal meningeal enhancement. IMPRESSION: 1. No significant atherosclerotic narrowing of the carotid and vertebral arteries in the neck. 2. Patent intracranial arteries as described above. No aneurysms evident. 3. No acute intracranial findings. Lab Data Lab results reviewed: Yes I reviewed the patient's lab results. Labs: Laboratory Tests Range/Units 11/11/20 11/11/20 11/11/20 18:25 18:25 18:25 WBC (4.4-10.8) 10^3/uL RBC (4.36-5.78) 10^6/uL Hgb (13.5-17.5) g/dL Hct (40.0-50.0) % MCV (80-95) fL MCH (27.0-33.0) pg MCHC (32.0-36.0) % RDW (11.8-14.1) % Plt Count (130-400) 10^3/uL MPV (8.0-11.0) fL Immature Gran % Neutrophils % Lymphocytes % Monocytes % Eosinophils % Basophils % Nucleated RBC % % Absolute Neutrophils (1.2-6.7) 10^3/uL Absolute Lymphocytes (1.2-3.4) 10^3/uL Absolute Monocytes (0.1-0.8) 10^3/uL Absolute Eosinophils (0.0-0.7) 10^3/uL Absolute Basophils (0.0-0.2) 10^3/uL D-Dimer (<500) ng/mlFEU 613 H Sodium (136-145) mmol/L 140 Potassium (3.5-5.1) mmol/L 4.3 Chloride (98-107) mmol/L 104 Carbon Dioxide (21.0-32.0) mmol/L 30.1 Anion Gap (3-11) mmol/L 5.9 BUN (7-18) mg/dL 16 Creatinine (0.70-1.30) mg/dL 0.9 Estimated GFR/1.73 m2 (mL/min/1.73m2) >= 60.00 Glucose (74-106) mg/dL 93 Calcium (8.5-10.1) mg/dL 8.9 Magnesium (1.8-2.4) mg/dL 2.6 H Total Bilirubin (0.2-1.0) mg/dL 0.4 AST (15-37) U/L 22 ALT (16-63) U/L 34 Alkaline Phosphatase (46-116) U/L 70 Troponin I (<0.06) ng/mL < 0.05 Total Protein (6.4-8.2) g/dL 7.3 Albumin (3.4-5.0) g/dL 4.0 Range/Units 11/11/20 11/11/20 18:25 21:05 WBC (4.4-10.8) 10^3/uL 5.98 RBC (4.36-5.78) 10^6/uL 5.49 Hgb (13.5-17.5) g/dL 15.2 Hct (40.0-50.0) % 46.7 MCV (80-95) fL 85.1 MCH (27.0-33.0) pg 27.7 MCHC (32.0-36.0) % 32.5 RDW (11.8-14.1) % 13.6 Plt Count (130-400) 10^3/uL 216 MPV (8.0-11.0) fL 9.1 Immature Gran % 0.0 Neutrophils % 45.2 Lymphocytes % 41.3 Monocytes % 10.5 Eosinophils % 2.3 Basophils % 0.7 Nucleated RBC % % 0 Absolute Neutrophils (1.2-6.7) 10^3/uL 2.70 Absolute Lymphocytes (1.2-3.4) 10^3/uL 2.47 Absolute Monocytes (0.1-0.8) 10^3/uL 0.63 Absolute Eosinophils (0.0-0.7) 10^3/uL 0.14 Absolute Basophils (0.0-0.2) 10^3/uL 0.04 D-Dimer (<500) ng/mlFEU Sodium (136-145) mmol/L Potassium (3.5-5.1) mmol/L Chloride (98-107) mmol/L Carbon Dioxide (21.0-32.0) mmol/L Anion Gap (3-11) mmol/L BUN (7-18) mg/dL Creatinine (0.70-1.30) mg/dL Estimated GFR/1.73 m2 (mL/min/1.73m2) Glucose (74-106) mg/dL Calcium (8.5-10.1) mg/dL Magnesium (1.8-2.4) mg/dL Total Bilirubin (0.2-1.0) mg/dL AST (15-37) U/L ALT (16-63) U/L Alkaline Phosphatase (46-116) U/L Troponin I (<0.06) ng/mL < 0.05 Total Protein (6.4-8.2) g/dL Albumin (3.4-5.0) g/dL ECG Data Attestation: I personally reviewed and interpreted this ECG (s) as follows: Interpretation: Please see official report by Dr. Brand. Sinus bradycardia, v entricular rate of 59. Subtle J-point elevation which is unchanged from 4-2-19. No STEMI. HPI General Mode of arrival: ambulatory . Date/Time Provider Initiated Documentation: 11/11/20 18:20 . Limitations to Documentation: no limitations . Information obtained by: patient . HPI Narrative: This is a 70-year-old male, past medical history of BPH, BPPV, history of what was described as carotid stenosis but upon further questioning he states this was originated from an injury and resolved completely, presenting to the ER for evaluation of diffuse anterior chest pain that was present when he awoke around 5 AM this morning. Patient states that he also noticed anterior neck gland being swollen for the past couple of days. He states that ever since he had shoulder surgery on his left shoulder he has been dealing with intermittent left shoulder pain as well. Denies any discomfort that radiates down to his arm, numbness, tingling, weakness, radiation of pain into his back or abdomen. Patient also reports mild dull headache. He states that he recently began making home brew coffee, drinking far more coffee than he typically does, is concerned for dehydration. He denies cardiac history, recent illness or trauma, visual changes, shortness of breath, cough, abdominal pain, nausea, vomiting with pain or swelling in his legs, numbness, tingling, weakness. Patient describes his chest pain as more of a pressure or dull ache, began moderate in nature, initially thought it was indigestion, tried [id number] medications with no real change of his symptoms. Patient states because he was concerned about dehydration he drank a lot of water today and now his symptoms have resolved completely, they lasted for approximately 12 hours total, nothing really made them worse, not even exertion. Related Data Home Medications Medication Instructions Recorded Confirmed valacyclovir 500 mg PO PRN PRN 06/06/18 11/11/20 ketoconazole 2 % shampoo 1 applic TOPICAL .2x/week ml 10/06/20 11/11/20 ketoconazole 2 % topical cream 1 applic TOPICAL BID PRN 10/06/20 11/11/20 valacyclovir 1 gram tablet 2,000 mg PO BID PRN tab 10/06/20 11/11/20 Allergies Allergy/AdvReac Type Severity Reaction Status Date / Time No Known Allergies Allergy Verified 11/11/20 18:22 General Stated Complaint: Chest Pain ERIN: 2 Review of Systems Constitutional Constitutional: Denies fatigue, Denies fever(s), Reports headache(s) and Denies weakness Eyes Eyes: Denies change in vision ENT Ears, Nose, Mouth, and Throat: Reports headache(s) and Denies neck pain Cardiovascular Cardiovascular: Reports chest pain and Denies dyspnea Respiratory Respiratory: Denies cough and Denies dyspnea Gastrointestinal Gastrointestinal: Denies abdominal pain, Denies nausea and Denies vomiting Genitourinary Genitourinary: Denies dysuria Musculoskeletal Musculoskeletal: Denies back pain, Denies neck pain, Denies numbness and Denies tingling Integumentary/Breasts Skin/Breast: Denies rash Neurologic Neurologic: Reports headache(s), Denies numbness, Denies tingling and Denies weakness Endocrine Endocrine: Denies fatigue Hematologic/Lymphatic Hematologic/Lymphatic: Denies easy bleeding and Denies easy bruising [facility] Medical History Benign prostatic hyperplasia Uro 10/2019 BPPV (benign paroxysmal positional vertigo) [place] Referral Cataracts, bilateral [facility] [place] Ophthal b/l repair 05/19/2020 Chronic cough Resolved--etiology athlete's foot powder! 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 [facility] H/O hernia repair History of orthopedic surgery Multiple Family History Father Melanoma Parkinsons disease Social History Smoking/Tobacco Use Status: Former Tobacco Use Quit Date: 03/07/89 Tobacco: How many years used: 10 Smoking risk assessment performed?: Yes Alcohol Intake: current Alcohol Intake frequency: holidays/special occasions only Alcohol type: beer Drug use: Rarely Substance use type: marijuana Adopted: No Caregiver/Support person: No Foster care: No Household members: significant other Housing: house Do you need help understanding health information?: Never current occupation: Self-Employed, Choreographer Sexually active: Yes Do you think of yourself as: straight/heterosexual Current gender identity: male What is your relationship status?: Panel score (0-1 are the most socially isolated patients): 1 What type of physical activity do you participate in: regular exercise Frequency: daily Seatbelt use: always Working smoke detector in home: Yes Fire extinguisher in home: Yes Carbon monox detector in home: Yes Do you feel safe at home: Yes Do you feel safe in your relationship?: Yes Exam Const General: cooperative, healthy appearing, comfortable and no acute distress Orientation: alert, awake and oriented x3 [facility] Head: normal to inspection, normocephalic and atraumatic Ears: external ears normal, TM's normal bilaterally and EAC's normal Face and sinus: normal facial exam Mouth: moist mucous membranes Throat: posterior oropharynx normal Eyes General: appearance normal, both eyes and all related structures Alignment and Position: alignment normal Periorbital: periorbital findings normal Eyelids: eyelids normal Conjunctivae: conjunctivae normal Sclera: sclerae normal Cornea: corneas normal Pupils: PERRL EOM: EOM intact bilaterally Direct ophthalmoscopy: normal light reflex Neck Neck: normal visual inspection, full ROM, no lymphadenopathy, no meningeal signs, trachea midline, supple and nontender Carotids: no bruits Chest Chest: normal inspection of the chest and normal palpation of entire chest wall Resp Effort & Inspection: normal respiratory effort and able to speak in complete sentences Auscultation: clear to auscultation bilaterally Cardio Rate: regular rate Rhythm: regular rhythm GI Inspection: normal to inspection Palpation: soft, not firm, no guarding, no pulsatile masses and nontender Auscultation: normal bowel sounds Back/Spine/Pelvis Back: no CVA tenderness and No back tenderness Skin General skin exam: no rashes or lesions noted Neuro General: patient alert, patient awake, patient oriented x3, moves all extremities and no focal motor deficits Cognition: normal cognition Speech: speech normal Gait: normal gait Motor: muscle tone normal throughout and strength 5/5 throughout Sensory Exam: no sensory deficits noted Extrem General: normal to inspection, full ROM, capillary refill normal, no pedal edema and no calf tenderness Psych Appearance: grossly normal Mental Status: mental status grossly normal Course Vital Signs Vital signs: Vital Signs Temperature 36.3 C L 11/11/20 18:17 Pulse 61 11/11/20 18:17 Blood Pressure 127/75 11/11/20 18:17 Pulse Oximetry 97 11/11/20 18:17 Temperature 36.3 C L 11/11/20 18:17 Temperature Source Temporal Artery Scan 11/11/20 18:17 Pulse 61 11/11/20 18:17 Respiratory Effort Non-Labored 11/11/20 18:21 Blood Pressure 127/75 11/11/20 18:17 Blood Pressure Position Sitting 11/11/20 18:17 Pulse Oximetry 97 11/11/20 18:17 Oxygen Delivery Method Room Air 11/11/20 18:17 Oxygen Flow Rate 0 11/11/20 18:17 Pain Level 1 11/11/20 18:37 Lab/Test Results Lab/Test Results: Laboratory Tests Range/Units 11/11/20 18:25 WBC (4.4-10.8) 10^3/uL 5.98 RBC (4.36-5.78) 10^6/uL 5.49 Hgb (13.5-17.5) g/dL 15.2 Hct (40.0-50.0) % 46.7 MCV (80-95) fL 85.1 MCH (27.0-33.0) pg 27.7 MCHC (32.0-36.0) % 32.5 RDW (11.8-14.1) % 13.6 Plt Count (130-400) 10^3/uL 216 MPV (8.0-11.0) fL 9.1 Immature Gran % 0.0 Neutrophils % 45.2 Lymphocytes % 41.3 Monocytes % 10.5 Eosinophils % 2.3 Basophils % 0.7 Nucleated RBC % % 0 Absolute Neutrophils (1.2-6.7) 10^3/uL 2.70 Absolute Lymphocytes (1.2-3.4) 10^3/uL 2.47 Absolute Monocytes (0.1-0.8) 10^3/uL 0.63 Absolute Eosinophils (0.0-0.7) 10^3/uL 0.14 Absolute Basophils (0.0-0.2) 10^3/uL 0.04
[2020-11-11 19:08] LABS: ALT 34 U/L (16-63); AST 22 U/L (15-37); Alkaline Phosphatase 70 U/L (46-116); Anion Gap 5.9 mmol/L (3-11); BUN 16 mg/dL (7-18); Bilirubin, Total 0.4 mg/dL (0.2-1.0); CO2 30.1 mmol/L (21.0-32.0); CREATININE 0.9 mg/dL (0.70-1.30); Calcium 8.9 mg/dL (8.5-10.1); Chloride 104 mmol/L (98-107); Glucose 93 mg/dL (74-106); Potassium 4.3 mmol/L (3.5-5.1); Sodium 140 mmol/L (136-145); Total Protein 7.3 g/dL (6.4-8.2)
[2020-11-11 19:12] LABS: Troponin I < 0.05 ng/mL (<0.06)
[2020-11-11 19:19] LABS: D-Dimer 613 ng/mlFEU (<500)
--- NOTE | 2020-11-11 19:30 | DI.VRAD_ITS ---
PROCEDURE INFORMATION: Exam: XR Chest Exam date and time: 11/11/2020 6:28 PM Age: 70 years old Clinical indication: Chest wall pain; Patient HX: Chest pain TECHNIQUE: Imaging protocol: XR of the chest. Views: 2 views. COMPARISON: CR XR CHEST 2V PA LATERAL 03/27/2019 12:18 PM FINDINGS: Lungs: No consolidation. Pleural spaces: No pleural effusion. No pneumothorax. Heart/Mediastinum: No cardiomegaly. Bones/joints: Evidence of right rotator cuff repair. No displaced fracture. IMPRESSION: No acute cardiopulmonary pathology. Dictated and Authenticated by: Cora Harris MD. Ordering:FRANTZ Madison MD
[2020-11-11] MEDS: Omnipaque 350 MG/ML 100 ML BTL IJ (19:50)
[2020-11-11] MEDS: Normal Saline Flush 10 ML SYR IVP (19:51)
--- NOTE | 2020-11-11 19:57 | DI.VRAD_ITS ---
PROCEDURE INFORMATION: Exam: CT Angiography Head With Contrast, Arteriography Exam date and time: 11/11/2020 6:51 PM Age: 70 years old Clinical indication: Pain; Headache; Prior surgery; Surgery date: 1-6 months; Surgery type: Cataract surgery; Patient HX: Mental status change, ? syncope TECHNIQUE: Imaging protocol: Computed tomography angiography of the head with contrast. Exam focused on the arteries. 3D rendering (Not supervised by radiologist): MIP and/or 3D reconstructed images were created by the technologist. Contrast material: OMNIPAQUE 350; Contrast volume: 100 ml; Contrast route: INTRAVENOUS (IV); COMPARISON: No relevant prior studies available. FINDINGS: ANTERIOR CIRCULATION: Right internal carotid artery: Intracranial segment is patent with no significant stenosis. No aneurysm. Right middle cerebral artery: No occlusion or significant stenosis. No aneurysm. Right anterior cerebral artery: No occlusion or significant stenosis. No aneurysm. Left internal carotid artery: Intracranial segment is patent with no significant stenosis. No aneurysm. Left middle cerebral artery: No occlusion or significant stenosis. No aneurysm. Left anterior cerebral artery: No occlusion or significant stenosis. No aneurysm. POSTERIOR CIRCULATION: Right vertebral artery: No occlusion or significant stenosis. No aneurysm. Left vertebral artery: No occlusion or significant stenosis. No aneurysm. Basilar artery: No occlusion or significant stenosis. No aneurysm. Right posterior cerebral artery: No occlusion or significant stenosis. No aneurysm. Left posterior cerebral artery: No occlusion or significant stenosis. No aneurysm. Brain: No acute intracranial hemorrhage and no intracranial edema. Cerebral ventricles: No ventriculomegaly. Bones/joints: No acute fracture. Soft tissues: No suspicious lesions. IMPRESSION: No acute arterial pathology. Patent [place]. No intracranial hemorrhage or edema. PROCEDURE INFORMATION: Exam: CT Angiography Neck With Contrast Exam date and time: 11/11/2020 6:51 PM Age: 70 years old Clinical indication: Pain; Headache; Prior surgery; Surgery date: 1-6 months; Surgery type: Cataract surgery; Patient HX: Mental status change, ? syncope TECHNIQUE: Imaging protocol: Computed tomography angiography of the neck with contrast. 3D rendering (Not supervised by radiologist): MIP and/or 3D reconstructed images were created by the technologist. Radiation optimization: All CT scans at this facility use at least one of these dose optimization techniques: automated exposure control; mA and/or kV adjustment per patient size (includes targeted exams where dose is matched to clinical indication); or iterative reconstruction. Contrast material: OMNIPAQUE 350; Contrast volume: 100 ml; Contrast route: INTRAVENOUS (IV); COMPARISON: No relevant prior studies available. FINDINGS: Right common carotid artery: No significant stenosis. No dissection or occlusion. Right internal carotid artery: Minimal proximal right ICA atherosclerosis with mild much less than 50% stenosis. No dissection. Right external carotid artery: No occlusion or significant stenosis. Left common carotid artery: No significant stenosis. No dissection or occlusion. Left internal carotid artery: Extracranial segment is patent with no significant stenosis. No dissection or occlusion. Left external carotid artery: No occlusion or significant stenosis. Right vertebral artery: No significant stenosis. No dissection or occlusion. Left vertebral artery: No significant stenosis. No dissection or occlusion. Soft tissues: No significant soft tissue swelling. Bones/joints: Moderate degenerative changes in the cervical spine. No acute fracture or subluxation. Lungs: Trace foci of emphysema in the lung apices. IMPRESSION: 1. No acute arterial pathology. Patent carotid and vertebral system bilaterally. 2. Incidental findings as described. REFERENCES: NASCET CRITERIA. The degree of internal carotid artery stenosis is based on NASCET criteria. Normal is no stenosis. Mild is less than 50% stenosis. Moderate is 50-69% stenosis. Severe is 70% to 99% stenosis. Total occlusion is no detectable patent lumen. Dictated and Authenticated by: Cora Harris MD. Ordering:FRANTZ Madison MD
[2020-11-11 21:26] LABS: Troponin I < 0.05 ng/mL (<0.06)
== END 2020-11-11 23:34 | disposition home or self-care (01) ==
PROVIDERS: Emergency Provider Physician Assistant; PCP Nurse Practitioner Adult Health
DX: R07.9 Chest pain, unspecified (principal); R51.9 Headache, unspecified; M54.2 Cervicalgia
CPT/HCPCS: 36415; 70496; 70498; 80053; 93005; 99285; 71046; 83735; 84484; 85025; 85379; 93010; 99284; J3490

== ENCOUNTER 2020-11-18 01:31 | Outpatient (CLI) | payer MEDICARE, BC, SELFPAY ==
[2020-11-18 14:11] LABS: Calculated LDL 118 mg/dL (<100); Cholesterol 182 mg/dL (<200); HDL Cholesterol 51 mg/dL (40-60); Triglyceride 66 mg/dL (<150)
== END 2020-11-18 01:32 | disposition home or self-care (01) ==
LOC: LBO 01:31
PROVIDERS: PCP Nurse Practitioner Adult Health; Visit Provider Nurse Practitioner Family
DX: Z13.220 Encounter for screening for lipoid disorders (principal); R07.9 Chest pain, unspecified
CPT/HCPCS: 36415; 80061

== ENCOUNTER 2020-11-24 01:02 | Outpatient (CLI) | payer MEDICARE, BC, SELFPAY ==
--- NOTE | 2020-11-24 15:00 | ETT_ITS ---
APPROVED REPORT Exam: Exercise Treadmill Patient Location: Out-Patient Room/Bed: Stress Nurse: Shirin Almendarez RN Ordering Provider:BRAULIO AN, Contact Number: [phone] BMI: 21.52 Baseline Rhythm: Sinus Bradycardia Indications: r/o ASCVD, chest pain Medical History Medical History: Carotid stenosis, squamous cell carcinoma, hypotension, BPPV Cardiac Medications: None Allergies: NKA Cardiac Risk Factors: Smoker (former) Previous Cardiac Procedures: None Pretest Chest Pain Characteristics: None Exercise History: Physically active Physical Disabilities: None Lung Sounds: Clear to auscultation Heart Sounds: Regular Stress Test Details Rest Stress HR Resting HR Supine: 58 bpm Max Heart Rate (APMHR): 149 bpm Resting HR Standin bpm Target HR (85% APMHR): 126 bpm Max HR Achieved: 152 bpm % of APMHR: 102 Recovery HR: 82 bpm HR response to stress: Normal HR response to stress BP Resting BP Supine: 114/80 mmHg Resting BP Standin/72 mmHg Max BP: 144/66 mmHg Recovery BP: 118/82 mmHg BP response to stress: Normal blood pressure response to stress. ECG Resting ECG: Sinus Bradycardia Ectopy: None Stress ECG: Sinus Tachycardia ST Change: Horizontal ST depression, Downsloping ST depression Lead(s): II, III, aVF, V4-V6 Stage: [address] Deviation: 2 mm Arrhythmia: Occasional PAC Recovery ECG: Sinus Rhythm Recovery ST Change: No significant ST segment changes noted Recovery Arrhythmia: Occasional PAC Clinical Reason for Termination: Fatigue Stress Symptoms: General Fatigue Exercise duration: 11 min15 sec Highest Stage Reached: Stage 4: 4.2 mph at 16% grade. Exercise capacity: 13.48 METs Lopez Treadmill Score: 9.5 Rate Pressure Product: [id number] Stress ECG Conclusion 1. The resting electrocardiogram was normal 2. Patient exercised on the Josue protocol and completed a workload of 13.48 METS, stopping due to ge neral fatigue 3. Normal heart rate and blood pressure response to exercise. The patient achieved greater than 100% of predicted heart rate for age 4. Electrocardiographically the test was consistent with myocardial ischemia with 1.[address] depres jeffrey noted in the inferior and anterolateral leads at peak exercise 5. There were no significant dysrhythmias 6. Suggest repeat with imaging if clinically indicated Lopez Treadmill Score is 9.5 which is Low risk. Stress Test Summary STAGE Time (mins) Speed (mph) Grade (%) HR BP SYMPTOMS METS Supine 58 114/80 Standing 66 110/72 SpO2 97% 1 3 1.7 10 88 118/76 SpO2 96% 4.6 2 6 2.5 12 102 120/72 SpO2 96% 7 3 9 3.4 14 124 128/70 SpO2 96% 10.2 1 min recovery 111 144/66 SpO2 98% 3 min recovery 79 130/70 SpO2 98% 6 min recovery 82 118/82 SpO2 98%
== END 2020-11-24 01:22 ==
PROVIDERS: PCP Nurse Practitioner Adult Health; Visit Provider Nurse Practitioner Family
DX: R07.9 Chest pain, unspecified (principal); Z87.891 Personal history of nicotine dependence
CPT/HCPCS: 93016; 93018; 93017

== ENCOUNTER 2020-12-01 01:53 | Outpatient (CLI) | payer MEDICARE, BC, SELFPAY ==
--- NOTE | 2020-12-01 07:00 | DI.NM_ITS ---
APPROVED REPORT Exam: Pharmacologic Patient Location: Out-Patient Room/Bed: Stress Nurse: Carmen Weir RN; Randy Moran RN Ordering Provider:BRAULIO NATALIYA, Contact Number: [phone] BMI: 21.52 Baseline Rhythm: Sinus Rhythm Comment: SB. T wave inverted lead III Indications: further eval abn EST w/ ST changes at peak exercise, abnl ekg Medical History Medical History: carotid stenosis, squamous cell carcinoma, hypotension, BPPV Cardiac Medications: none Allergies: NKA Cardiac Risk Factors: Former smoker Previous Cardiac Procedures: Stress test 11/24/20 Pretest Chest Pain Characteristics: none Exercise History: Physically active Physical Disabilities: none Lung Sounds: Clear to auscultation Heart Sounds: Regular Stress Test Details Test: Pharmacologic stress testing performed using 0.4 mg of regadenoson per 5 mL given IV over 10 s econds. Nuclear Acquisition: Rest Tc-99m/Stress Tc-99m 1 day Rest Isotope: Tc-99m Sestamibi. Dose: 11 Date: 12/01/2020 Injection Time: 0930 Stress Isotope: Tc-99m Sestamibi. Dose: 37 Date: 12/01/2020 Injection Time: 1112 HR Resting HR Supine: 56 bpm Max Heart Rate (APMHR): 149.582936 bpm Resting HR Standin bpm Target HR (85% APMHR): 126.804306 bpm Max HR Achieved: 105 bpm % of APMHR: 70.47 Recovery HR: 67 bpm HR response to stress: Normal HR response to stress BP Resting BP Supine: 108/78 mmHg Resting BP Standin/72 mmHg Max BP: 118/68 mmHg Recovery BP: 104/72 mmHg BP response to stress: Normal blood pressure response to stress. ECG Resting ECG: Sinus Bradycardia Ectopy: none Comment: Lead III t wave inversion Stress ECG: Sinus Rhythm ST Change: No significant ST segment changes noted Arrhythmia: None Recovery ECG: Sinus Rhythm Recovery ST Change: No significant ST segment changes noted Recovery Arrhythmia: None Clinical Exercise duration: 5 min01 sec Rate Pressure Product: [id number] Stress ECG Conclusion 1. The resting electrocardiogram showed nonspecific ST T abnormalities 2. The patient underwent pharmacologic stress with regadenoson. Peak heart rate was 76% of predicted for age 3. Electrocardiographically the test was nondiagnostic due to inadequate heart rate 4. There were no significant dysrhythmias Stress Test Summary STAGE HR BP Symptoms NOTES Supine 56 108/78 1 min post Lexiscan injection 101 114/76 SOB, upset stomach 3 min post Lexiscan injection 82 118/68 symptoms resolved 6 min post Lexiscan injection 67 104/72 Standing 59 112/72 Low level exercise paired with Lexiscan, o% grade and 1.8mph MPI Conclusion Normal myocardial perfusion without evidence of ischemia or prior infarction EF 55% Radiologist Interpretation Radiologist Interpretation by: Gibran Lang MD Interpretation Date/Time: 12/02/2020 16:40:53
[2020-12-01] MEDS: Regadenoson 0.4 MG/5 ML SYR IVP (11:00)
== END 2020-12-01 02:13 ==
PROVIDERS: PCP Nurse Practitioner Adult Health; Visit Provider Nurse Practitioner Family
DX: R94.31 Abnormal electrocardiogram [ECG] [EKG] (principal); Z87.891 Personal history of nicotine dependence
CPT/HCPCS: 78452; 93016; 93018; 93017; J2785

== ENCOUNTER 2021-01-02 00:31 | Outpatient (CLI) | payer MEDICARE, BC, SELFPAY ==
--- NOTE | 2021-01-02 06:45 | DI.US_ITS ---
Exam(s) US ABDOMEN EXAM: US ABDOMEN INDICATION: H/O GALLSTONES,[id number],ASSESS GALLBLADDER AND GALLSTONES COMPARISON: No exams were available for comparison TECHNIQUE: Ultrasound abdomen performed using standard protocol FINDINGS: Abdominal ultrasound was performed according to the usual protocol. The liver shows generally normal echotexture. There are multiple simple hepatic cysts, the largest m easuring up to about 8 cm in diameter. No solid hepatic lesion identified. There is cholelithiasis without evident gallbladder wall thickening or pericholecystic fluid collecti on. There is no evident biliary dilatation. Portal venous flow is hepatopetal. Pancreas appears intact as visualized, portions of the pancreas were nonvisualized due to overlying b owel gas.. Spleen is unremarkable in appearance with no focal lesion. Kidneys are normal in size and shape. No renal mass, hydronephrosis, or nephrolithiasis. Abdominal aorta and IVC are of normal diameter. IMPRESSION: Cholelithiasis. Multiple simple hepatic cysts, the largest measuring about 8 cm in greatest diameter.
== END 2021-01-02 00:51 ==
PROVIDERS: PCP Nurse Practitioner Adult Health; Visit Provider Nurse Practitioner Adult Health
DX: Z87.19 Personal history of other diseases of the digestive system (principal); K80.20 Calculus of gallbladder without cholecystitis without obstruction; K76.9 Liver disease, unspecified
CPT/HCPCS: 76700

== ENCOUNTER 2021-02-02 00:37 | Outpatient (CLI) | payer MEDICARE, BC, SELFPAY ==
--- NOTE | 2021-02-02 | DI.MRI_ITS ---
Exam(s) MR UPPER JOINT LT WO EXAM: MR UPPER JOINT LT WO CLINICAL HISTORY: LT SHOULDER PAIN, [id number].S/P ROTATOR CUFF REPAIR,BICEPS TENDINOSIS,NEW TECHNIQUE: Multiplanar multisequence MRI of the shoulder was performed. COMPARISON: CR,XR XR CHEST 2V PA LATERAL from 11/11/2020 FINDINGS: MARROW:There is no evidence of fracture, Hill-Sachs deformity, nor ominous osseous lesions. Fastener seen at the level the greater tuberosity from prior rotator cuff surgery. No evidence of osteomyelit is at this level. No glenohumeral joint effusion. There also appears to be a biceps tenodesis site in the proximal diaphysis of the humerus. ROTATOR CUFF MECHANISM: AC JOINT/ACROMIUM: Widened-postsurgical decompression.. There is no evidence of os acromiale. Supraspinatus: There is thickening of the tendon consistent with tendinosis postoperative changes. T here does not appear to be high-grade tear nor retraction. There is, however, some fluid in the suba cromial bursa evident. No muscle atrophy. Infraspinatus: Intact. No evidence of tear nor muscle atrophy. Teres Minor: Intact. No evidence of tear nor muscle atrophy. Subscapularis/anterior cuff: Mild tendinitis signal. No high-grade tear. No muscle atrophy. BICEPS TENDON: Tenodesis site noted in the proximal diaphysis the humerus. LABRUM: There is attenuation tearing of the superior labrum. Posterior labrum appears intact. Anter ior labrum and anchor level is exhibits abnormality. Inferior labrum is intact. Inferior glenohumer al ligament appears intact. GLENOHUMERAL JOINT: Mild degenerative changes. No prominent joint effusion. No osteophytes. No deg enerative subarticular cysts. No evidence of capsular tear. The inferior glenohumeral ligament is in tact. QUADRILATERAL SPACE: No evidence of mass in the region of the axillary nerve and dorsal circumflex hu meral vessels. Visualized triceps muscle at this level appears unremarkable. IMPRESSION: 1. There is evidence of previous rotator cuff surgery, as described above. There is some thickening of the supraspinatus tendon as well as some fluid in the overlying subacromial bursa. Suspect tendin itis and bursitis more so than a high-grade tear. 2. There is also mild tendinitis signal evident in both the infraspinatus and subscapularis. 3. Biceps tenodesis. Labral tears as described above. No evidence of paralabral cyst. No glenohume ral joint effusion. DATA REPOSITORY:
== END 2021-02-02 00:57 ==
PROVIDERS: PCP Nurse Practitioner Adult Health; Visit Provider Orthopaedic Surgery Sports Medicine
DX: M25.512 Pain in left shoulder (principal); S43.432A Superior glenoid labrum lesion of left shoulder, initial encounter; M75.22 Bicipital tendinitis, left shoulder
CPT/HCPCS: 73221

== ENCOUNTER 2021-05-15 04:08 | Outpatient (CLI) | payer MEDICARE, BC, SELFPAY ==
[2021-05-15 09:14] LABS: Calculated LDL 100 mg/dL (<100); Cholesterol 155 mg/dL (<200); HDL Cholesterol 48 mg/dL (40-60); Triglyceride 36 mg/dL (<150)
== END 2021-05-15 04:09 | disposition home or self-care (01) ==
LOC: LBO 04:09
PROVIDERS: PCP Nurse Practitioner Adult Health; Visit Provider Nurse Practitioner Adult Health
DX: E78.5 Hyperlipidemia, unspecified (principal); R07.9 Chest pain, unspecified
CPT/HCPCS: 36415; 80061

== ENCOUNTER 2021-05-15 18:54 | Outpatient (CLI) | payer MEDICARE, BC, SELFPAY ==
--- NOTE | 2021-05-15 06:15 | DI.RAD_ITS ---
Exam(s) XR FOOT RT COMPLETE EXAM: XR FOOT RT COMPLETE CLINICAL HISTORY: Metarsal pain 3-4-5; no trauma--OA vs. neuroma,M89.8X7. TECHNIQUE: 2D digital imaging was performed. COMPARISON: No exams were available for comparison FINDINGS: Three weight-bearing views of the right foot reveal no evidence of fracture nor diastasis of the Brandee gerald joint. No pes planus. No osseous lesions nor erosions evident. Mild degenerative changes are noted at the 1st tarsometatarsal joint, seen on the oblique view. No osseous tarsal coalition. IMPRESSION: DATA REPOSITORY: RADIATION DOSE DELIVERED:
== END 2021-05-15 19:14 ==
PROVIDERS: PCP Nurse Practitioner Adult Health; Visit Provider Nurse Practitioner Adult Health
DX: M79.671 Pain in right foot (principal)
CPT/HCPCS: 36415; 80061; 73630

== ENCOUNTER 2021-05-19 11:10 | Outpatient (CLI) | payer MEDICARE, BC, SELFPAY ==
--- NOTE | 2021-05-19 11:00 | RT.EKG_ITS ---
APPROVED REPORT Exam: Resting ECG Reason for Exam: Patient Location: O HR:58 bpm ECG Measurements Heart Rate 58 AXIS MA 199 P 74 QRSd 75 QRS 62 QT 401 T 31 QTc 394 Conclusion Sinus rhythm...normal P axis, V-rate 50- 99 RSR' in V1 or V2, probably normal variant...small R' only Normal Electrocardiogram
== END 2021-05-19 11:11 | disposition home or self-care (01) ==
LOC: DI.CARD 11:11
PROVIDERS: PCP Nurse Practitioner Adult Health; Visit Provider Internal Medicine Cardiovascular Disease
DX: R07.9 Chest pain, unspecified (principal)
CPT/HCPCS: 93010

== ENCOUNTER → 2021-05-19 11:11 | Outpatient (BNVA) | payer MEDICARE, BC, SELFPAY | PROVIDERS: PCP Nurse Practitioner Adult Health; Referring Provider Nurse Practitioner Adult Health; Visit Provider Internal Medicine Cardiovascular Disease | DX: E78.5 Hyperlipidemia, unspecified (principal); I25.10 Atherosclerotic heart disease of native coronary artery without angina pectoris; R07.9 Chest pain, unspecified | CPT/HCPCS: 93005; 99202; 99213 ==

== ENCOUNTER 2021-09-11 13:20 | Outpatient (CLI) | payer MEDICARE, BC, SELFPAY ==
[2021-09-11 14:18] LABS: Anion Gap 7.2 mmol/L (3-11); BUN 27 mg/dL (7-18); CO2 28.8 mmol/L (21.0-32.0); Calcium 8.7 mg/dL (8.5-10.1); Chloride 102 mmol/L (98-107); Glucose 98 mg/dL (74-106); Potassium 4.2 mmol/L (3.5-5.1); Sodium 138 mmol/L (136-145); Uric Acid 4.6 mg/dL (3.5-7.2)
[2021-09-14 11:08] LABS: HSV Type 1 Ab, IgG Positive (Negative); HSV Type 2 Ab, IgG Positive (Negative)
== END 2021-09-11 13:21 | disposition home or self-care (01) ==
LOC: LBO 13:20
PROVIDERS: PCP Nurse Practitioner Adult Health; Visit Provider Nurse Practitioner Adult Health
DX: M10.9 Gout, unspecified (principal); B02.9 Zoster without complications; Z51.81 Encounter for therapeutic drug level monitoring
CPT/HCPCS: 36415; 80048; 84550; 86695; 86696; 86787

== ENCOUNTER 2021-10-30 12:11 | Outpatient (REF) | payer MEDICARE, BC, SELFPAY ==
[2021-11-01 10:20] LABS: COVID-19 RT-PCR UVMMC Result Negative (Negative)
== END 2021-10-30 12:12 | disposition home or self-care (01) ==
LOC: LBN 12:11
PROVIDERS: PCP Nurse Practitioner Adult Health; Visit Provider Nurse Practitioner Adult Health
DX: Z20.822 Contact with and (suspected) exposure to COVID-19 (principal)
CPT/HCPCS: U0003

== ENCOUNTER 2022-05-13 03:02 | Outpatient (CLI) | payer MEDICARE, BC, SELFPAY ==
[2022-05-13 15:05] LABS: Anion Gap 6.2 mmol/L (3-11); BUN 19 mg/dL (7-18); CO2 29.8 mmol/L (21.0-32.0); Calcium 9.2 mg/dL (8.5-10.1); Chloride 103 mmol/L (98-107); Estimated GFR 79.47 (mL/min/1.73m2); Glucose 86 mg/dL (74-106); Potassium 4.7 mmol/L (3.5-5.1); Sodium 139 mmol/L (136-145)
[2022-05-13 15:25] LABS: Calculated LDL 93 mg/dL (<100); Cholesterol 155 mg/dL (<200); HDL Cholesterol 52 mg/dL (40-60); Triglyceride 51 mg/dL (<150)
== END 2022-05-13 03:03 | disposition home or self-care (01) ==
LOC: LBO 03:03
PROVIDERS: PCP Nurse Practitioner Adult Health; Visit Provider Nurse Practitioner Adult Health
DX: E78.5 Hyperlipidemia, unspecified (principal); R79.89 Other specified abnormal findings of blood chemistry
CPT/HCPCS: 36415; 80048; 80061

== ENCOUNTER 2022-05-18 08:56 | Outpatient (CLI) | payer MEDICARE, BC, SELFPAY | END 2022-05-18 08:57 | disposition home or self-care (01) | LOC: DI.CARD 08:57 | PROVIDERS: PCP Nurse Practitioner Adult Health; Visit Provider Internal Medicine Cardiovascular Disease | CPT/HCPCS: 93010 ==

== ENCOUNTER → 2022-05-18 10:57 | Outpatient (BNVA) | payer MEDICARE, BC, SELFPAY | PROVIDERS: PCP Nurse Practitioner Adult Health; Referring Provider Nurse Practitioner Adult Health; Visit Provider Internal Medicine Cardiovascular Disease | DX: I25.10 Atherosclerotic heart disease of native coronary artery without angina pectoris (principal) | CPT/HCPCS: 99213 ==

== ENCOUNTER 2022-11-29 02:09 | Outpatient (CLI) | payer MEDICARE, BC, SELFPAY ==
[2022-11-29 16:17] LABS: ALT 24 U/L (16-63); AST 15 U/L (15-37); Albumin 3.7 g/dL (3.4-5.0); Alkaline Phosphatase 68 U/L (46-116); Anion Gap 8.2 mmol/L (3-11); BUN 19 mg/dL (7-18); Bilirubin, Total 0.4 mg/dL (0.2-1.0); CO2 27.8 mmol/L (21.0-32.0); CREATININE 0.9 mg/dL (0.70-1.30); Calculated LDL 86 mg/dL (<100); Chloride 101 mmol/L (98-107); Cholesterol 151 mg/dL (<200); Estimated GFR 90.18 (mL/min/1.73m2); Glucose 84 mg/dL (74-106); HDL Cholesterol 47 mg/dL (40-60); Sodium 137 mmol/L (136-145); Total Protein 7.1 g/dL (6.4-8.2); Triglyceride 92 mg/dL (<150)
[2022-11-30 18:23] LABS: PSA, Screening 1.3 ng/mL (<=6.5)
== END 2022-11-29 02:10 | disposition home or self-care (01) ==
LOC: LBO 02:09
PROVIDERS: PCP Nurse Practitioner Adult Health; Visit Provider Nurse Practitioner Adult Health
DX: E78.5 Hyperlipidemia, unspecified (principal); R79.89 Other specified abnormal findings of blood chemistry; Z12.5 Encounter for screening for malignant neoplasm of prostate
CPT/HCPCS: 36415; 80053; 80061; 84153

== ENCOUNTER → 2023-03-16 11:00 | Outpatient (BNVA) | payer MEDICARE, BC, SELFPAY | PROVIDERS: PCP Nurse Practitioner Adult Health; Referring Provider Nurse Practitioner Adult Health; Visit Provider Nurse Practitioner Gerontology | DX: N52.9 Male erectile dysfunction, unspecified (principal) | CPT/HCPCS: 99214 ==

== ENCOUNTER 2023-03-30 02:52 | Outpatient (CLI) | payer MEDICARE, BC, SELFPAY ==
[2023-03-30 12:09] LABS: Anion Gap 7.4 mmol/L (3-11); BUN 20 mg/dL (7-18); CO2 30.6 mmol/L (21.0-32.0); Calcium 9.3 mg/dL (8.5-10.1); Calculated LDL 137 mg/dL (<100); Chloride 102 mmol/L (98-107); Cholesterol 209 mg/dL (<200); Estimated GFR 78.98 (mL/min/1.73m2); Glucose 90 mg/dL (74-106); HDL Cholesterol 62 mg/dL (40-60); Sodium 140 mmol/L (136-145); Triglyceride 50 mg/dL (<150)
[2023-03-30 17:19] LABS: CRP, High Sensitivity 0.79 mg/L (See Note)
[2023-04-01 11:34] LABS: HSV Type 1 Ab, IgG Positive (Negative); HSV Type 2 Ab, IgG Positive (Negative)
[2023-04-01 16:39] LABS: Lipoprotein (a) 26 nmol/L (<75)
[2023-04-02 11:20] LABS: Apolipoprotein A1, S 155 mg/dL (>=120); Apolipoprotein B, S 94 mg/dL (See Comment); Apolipoprotein B/A 1 ratio 0.6 (See Comment)
[2023-04-06 02:08] LABS: Testosterone, Bioavailable 51 ng/dL (40-168); Testosterone, Total 1000 ng/dL (240-950)
== END 2023-03-30 02:53 | disposition home or self-care (01) ==
LOC: LBO 02:52
PROVIDERS: PCP Nurse Practitioner Adult Health; Referring Provider Nurse Practitioner Adult Health; Visit Provider Nurse Practitioner Adult Health
DX: B00.9 Herpesviral infection, unspecified (principal); E78.5 Hyperlipidemia, unspecified; R79.9 Abnormal finding of blood chemistry, unspecified; I25.10 Atherosclerotic heart disease of native coronary artery without angina pectoris; N52.9 Male erectile dysfunction, unspecified
CPT/HCPCS: 36415; 80048; 80061; 82172; 83695; 84403; 84410; 86141; 86695; 86696

== ENCOUNTER 2023-12-20 02:33 | Outpatient (CLI) | payer MEDICARE, BC, SELFPAY ==
[2023-12-20 11:03] LABS: ALT 20 U/L (16-63); AST 16 U/L (15-37); Albumin 3.7 g/dL (3.4-5.0); Alkaline Phosphatase 65 U/L (46-116); Anion Gap 7.4 mmol/L (3-11); BUN 17 mg/dL (7-18); Bilirubin, Total 0.59 mg/dL (0.2-1.0); CO2 28.6 mmol/L (21.0-32.0); Calcium 9.1 mg/dL (8.5-10.1); Calculated LDL 114 mg/dL (<100); Chloride 107 mmol/L (98-107); Cholesterol 175 mg/dL (<200); Estimated GFR 78.98 (mL/min/1.73m2); Glucose 91 mg/dL (74-106); HDL Cholesterol 54 mg/dL (40-60); Potassium 4.7 mmol/L (3.5-5.1); Sodium 143 mmol/L (136-145); Total Protein 7.2 g/dL (6.4-8.2); Triglyceride 37 mg/dL (<150)
== END 2023-12-20 02:34 | disposition home or self-care (01) ==
PROVIDERS: PCP Nurse Practitioner Adult Health; Visit Provider Nurse Practitioner Adult Health
DX: Z91.89 Other specified personal risk factors, not elsewhere classified (principal); R79.9 Abnormal finding of blood chemistry, unspecified
CPT/HCPCS: 36415; 80053; 80061

== ENCOUNTER 2024-04-19 03:10 | Outpatient (CLI) | payer MEDICARE, BC, SELFPAY ==
[2024-04-23 17:41] LABS: Apolipoprotein B, Serum 55 mg/dL; Beta VLDL Cholesterol Not Detected mg/dL (<15); Beta VLDL Triglycerides Not Detected mg/dL (<15); Cholesterol, Total, CDC 123 mg/dL; Chylomicron Cholesterol Not Detected; Chylomicron Triglycerides Not Detected; HDL Cholesterol, CDC 45 mg/dL (>=40); Interpretation Normal; LDL Cholesterol 68 mg/dL; LDL Triglycerides 29 mg/dL (<=50); Lp(a) Cholesterol <5 mg/dL (<5); LpX Not detected; Triglycerides, CDC 59 mg/dL; VLDL Cholesterol 10 mg/dL (<30); VLDL Triglycerides 16 mg/dL (<120)
== END 2024-04-19 03:11 | disposition home or self-care (01) ==
PROVIDERS: PCP Nurse Practitioner Adult Health; Visit Provider Nurse Practitioner Adult Health
DX: I25.10 Atherosclerotic heart disease of native coronary artery without angina pectoris (principal)
CPT/HCPCS: 36415; 80061; 82172; 82664

== ENCOUNTER → 2024-09-24 13:45 | Outpatient (BNVA) | payer MEDICARE, BC, SELFPAY | PROVIDERS: PCP Nurse Practitioner Adult Health; Referring Provider Nurse Practitioner Adult Health; Visit Provider Podiatrist | DX: L60.0 Ingrowing nail (principal); M79.671 Pain in right foot | CPT/HCPCS: 11750 ==

== ENCOUNTER → 2024-10-17 13:52 | Outpatient (BNVA) | payer MEDICARE, BC, SELFPAY | PROVIDERS: PCP Nurse Practitioner Adult Health; Referring Provider Nurse Practitioner Adult Health; Visit Provider Podiatrist | DX: L60.0 Ingrowing nail (principal); M79.671 Pain in right foot; B35.3 Tinea pedis; B35.1 Tinea unguium | CPT/HCPCS: 99213 ==

== ENCOUNTER 2024-10-29 04:36 | Outpatient (CLI) | payer MEDICARE, BC, SELFPAY ==
[2024-10-29 09:50] LABS: Glucose Negative (Negative)
[2024-10-29 10:13] LABS: Anion Gap 5.8 mmol/L (3-11); BUN 17 mg/dL (7-18); CO2 31.2 mmol/L (21.0-32.0); Calcium 9.3 mg/dL (8.5-10.1); Chloride 103 mmol/L (98-107); Estimated GFR 70.01 (mL/min/1.73m2); Glucose 79 mg/dL (74-106); Potassium 4.8 mmol/L (3.5-5.1); Sodium 140 mmol/L (136-145)
== END 2024-10-29 04:37 | disposition home or self-care (01) ==
PROVIDERS: PCP Nurse Practitioner Adult Health; Visit Provider Nurse Practitioner Adult Health
DX: Z51.81 Encounter for therapeutic drug level monitoring (principal)
CPT/HCPCS: 36415; 80048; 81003

== ENCOUNTER → 2025-02-13 13:33 | Outpatient (BNVA) | payer MEDICARE, BC, SELFPAY | PROVIDERS: PCP Nurse Practitioner Adult Health; Referring Provider Nurse Practitioner Adult Health; Visit Provider Podiatrist | DX: B35.1 Tinea unguium (principal); B35.3 Tinea pedis; L60.0 Ingrowing nail; M79.671 Pain in right foot; M79.672 Pain in left foot | CPT/HCPCS: 99213 ==